=== PATIENT | female | born 1990 | race Caucasian/White ===

== ENCOUNTER 2017-10-30 07:31 | Inpatient (IN) | payer BC ==
[2017-10-30] MEDS ORDERED: LIDOCAINE HCL 50 ML VIAL PERI PRN (07:50)
[2017-10-30] MEDS ORDERED: DEXTROSE 5%-LACTATED RINGERS 1,000 ML IV PRN (07:50)
[2017-10-30] MEDS ORDERED: OXYTOCIN/DEXTROSE 5%-WATER 30 UNITS/500 ML BAG IV ONE ×2 (07:50→18:22)
[2017-10-30] MEDS ORDERED: RINGER'S SOLUTION,LACTATED 1,000 ML IV ONE (07:50)
[2017-10-30] MEDS ORDERED: METOCLOPRAMIDE HCL 5 MG/ML VIAL IV PRN (07:53)
[2017-10-30] MEDS ORDERED: diphenhydrAMINE HCL 50 MG/ML VIAL IV ONE (07:53)
[2017-10-30 08:11] LABS: Hematocrit 36.9 % (37.0-47.0); Hemoglobin 12.8 gm/dL (12.5-16.0); Mean Cell Volume 94.4 fl (78-100); Mean Corpuscular Hemoglobin 32.7 pg (27-31); Mean Corpuscular Hgb Conc 34.7 g/dl (32-36); Mean Platelet Volume 9.7 fl (6.0-9.5); Neutrophil # 13.7 K/mm3 (1.3-6.0); Neutrophil % 77.5 % (42-75.0); Platelet Count 319 K/mm3 (150-450); Red Blood Count 3.91 M/mm3 (4.2-5.4); White Blood Count 17.7 K/mm3 (4.0-10.5)
[2017-10-30 08:21] LABS: Random Urine Total Protein 9.2 mg/dL (0-12)
[2017-10-30 08:27] LABS: Anion Gap 9.9 mmol/L (6.8-13.8); BUN/Creatinine Ratio 10.3 (9.0-21.6); Bilirubin, Total 0.2 mg/dL (0.0-1.1); Ca. Corrected For Albumin 9.7 mg/dL (8.4-10.2); Calcium * 9.2 mg/dL (7.9-10.9); Carbon Dioxide 25.8 mmol/L (24-32.6); Potassium 3.7 mmol/L (3.4-4.6); Total Protein 7.2 gm/dL (6.2-8.2)
--- NOTE | 2017-10-30 16:32 | PN ---
Progess Note - Interim Narrative: 10/30/17 16:28 Patient managing labor pain well with no pain medications Vital signs stable. FHT: 130 baseline, reassuring Contractions q 2-3 min Cervix: 8/90/-2, AROM-clear Impression: Intrauterine at 38-2/7 weeks in labor. Mild preeclampsia Plan: Will start pitocin at 2 mu/min.
[2017-10-30] MEDS ORDERED: SENNOSIDES 8.6 MG TABLET PO PRN (18:22)
[2017-10-30] MEDS ORDERED: HYDROCORTISONE 30 APPL TUBE TP PRN (18:22)
[2017-10-30] MEDS ORDERED: GLYCERIN/WITCH HAZEL LEAF 40 APPL BOX TP PRN (18:22)
[2017-10-30] MEDS ORDERED: BISACODYL 10 MG SUPP.RECT RC PRN (18:22)
[2017-10-30] MEDS ORDERED: oxyCODONE HCL/ACETAMINOPHEN 1 TAB TABLET PO PRN (18:22)
[2017-10-30] MEDS ORDERED: BENZOCAINE/MENTHOL 81 SPRAY CAN TP PRN (18:22)
--- NOTE | 2017-10-30 18:28 | OR ---
Operative Report - Dictated Report Narrative: Spontaneous vaginal delivery of viable female at 1728 on 10/30/2017 with Apgars 9 and 9, weighing 2653 g in ANTONIO position with right hand at face. Cord clamping delayed approximately 1 minute Placenta delivered complete, intact, with three vessel cord Estimated blood loss: 100 mL Lacerations: First-degree right labial laceration near clitoral youngblood and in mid portion of labia repaired with 4-0 Vicryl Rapide.
[2017-10-30] MEDS: oxyCODONE HCL/ACETAMINOPHEN 1 TAB TABLET PO PRN (18:33)
[2017-10-30] MEDS: IBUPROFEN 800 MG TABLET PO PRN (19:15)
[2017-10-30] MEDS: DOCUSATE SODIUM 100 MG CAPSULE PO SCH (21:50)
[2017-10-31] MEDS: IBUPROFEN 800 MG TABLET PO PRN ×3 (04:25→21:41)
--- NOTE | 2017-10-31 09:25 | PN ---
Subjective - Date and Time Seen Date: 10/31/17 Time: 09:24 Objective - Vitals Vitals: Last Vital Signs Temp 37.1 C 10/30/17 23:00 Pulse 98 10/31/17 04:30 Resp 18 10/31/17 04:30 BP 132/68 10/31/17 04:30 Pulse Ox 100 10/30/17 23:00 Patient denies headache, visual changes, or abdominal pain. Admits to mild tailbone pain. Lochia wnl Abdomen - soft, nontender Uterus - firm, at umbilicus - 1 No calf tenderness Impression: day #1 - s/p spontaneous vaginal delivery. Mild preeclampsia resolved Plan: Continue routine care
[2017-10-31] MEDS: DOCUSATE SODIUM 100 MG CAPSULE PO SCH ×2 (09:34→21:41)
[2017-10-31] MEDS: oxyCODONE HCL/ACETAMINOPHEN 1 TAB TABLET PO PRN ×3 (13:57→21:41)
[2017-11-01] MEDS: oxyCODONE HCL/ACETAMINOPHEN 1 TAB TABLET PO PRN (03:49)
[2017-11-01] MEDS: IBUPROFEN 800 MG TABLET PO PRN (03:49)
[2017-11-01 07:40] VITALS: BP 120/64
[2017-11-01] MEDS ORDERED: CALCIUM CARBONATE/VITAMIN D3 1 TAB TABLET PO SCH (09:00)
[2017-11-01] MEDS ORDERED: PRENATAL VITS96/IRON FUM/FOLIC 1 TAB TABLET PO SCH (09:00)
[2017-11-01] MEDS ORDERED: FERROUS SULFATE 325 MG TABLET PO SCH (09:00)
--- NOTE | 2017-11-01 12:24 | PN ---
Subjective - Date and Time Seen Date: 11/01/17 Time: 12:23 Objective - Vitals Vitals: Last Vital Signs Temp 36.9 C 11/01/17 07:31 Pulse 72 11/01/17 07:31 Resp 18 11/01/17 07:31 BP 120/64 11/01/17 07:31 Pulse Ox 98 11/01/17 07:31 Patient denies complaints. Lochia wnl Abdomen - soft, nontender Uterus - firm, at umbilicus - 2 No calf tenderness Impression: day #2 - s/p spontaneous vaginal delivery. Mild preeclampsia-resolved. Plan: Routine discharge instructions. Preeclampsia precautions.
== END 2017-11-01 12:00 | disposition home or self-care (01) | DRG 775 ==
LOC: OB 07:31
PROVIDERS: ADMIT Obstetrics & Gynecology; ATTEND Obstetrics & Gynecology
PROC: 10E0XZZ Delivery of Products of Conception, External Approach (ICD-10-PCS; principal; 2017-10-30)
PROC: 4A1HXCZ Monitoring of Products of Conception, Cardiac Rate, External Approach (ICD-10-PCS; 2017-10-30)
PROC: 0HQ9XZZ Repair Perineum Skin, External Approach (ICD-10-PCS; 2017-10-30)
PROC: 10907ZC Drainage of Amniotic Fluid, Therapeutic from Products of Conception, Via Natural or Artificial Opening (ICD-10-PCS; 2017-10-30)
DX: O14.04 Mild to moderate pre-eclampsia, complicating childbirth; O70.0 First degree perineal laceration during delivery; Z37.0 Single live birth; O99.02 Anemia complicating childbirth; Z3A.38 38 weeks gestation of pregnancy; O13.4 Gestational [pregnancy-induced] hypertension without significant proteinuria, complicating childbirth; D64.9 Anemia, unspecified

== ENCOUNTER 2020-08-19 01:34 | Inpatient (IN) ==
--- NOTE | 2020-08-19 09:08 | HP ---
Chief Complaint - Chief Complaint Date of Service: 08/19/20 Time of Service: 08:15 Chief Complaint: painful contractions History of Present Illness: 30 yo at 38wks presents to L&D in labor. Contractions began last pm and continued throughout the night becoming more and more intense. This complicated by anemia, h/o migraines, and h/o preeclampsia. Rh positive Rubella immune GBS negative. Medical History (Last Reviewed 08/19/20 @ 16:34 by Monster Lucero DO) Hx of migraines (Chronic) History of pre-eclampsia (Chronic) Body piercing Onset Date: Unknown Migraine Onset Date: Unknown without aura, sensitive to smells and loud noises. Tattoos Onset Date: Unknown Wears glasses Onset Date: Unknown Anemia Onset Date: ~2016 w/ History of pre-eclampsia Onset Date: ~10/2017 mild Surgical History: Surgical History (Last Reviewed 08/19/20 @ 16:34 by Monster Lucero DO) H/O skin graft Onset Date: ~2009 in mouth during oral surgery History of tonsillectomy and adenoidectomy Onset Date: ~2002 [place] teeth extracted Onset Date: ~2011 Family History: Family History (Last Reviewed 08/19/20 @ 16:35 by Monster Lucero DO) Mother Depression Hypertension Father Alive and well Aunt Cancer breast Social History: (Last Reviewed 08/19/20 @ 16:35 by Monster Lucero DO) Social History: adopted: No care home: No Marital status: household members: spouse, children number of children: 1 current occupational status: unemployed current occupation: homemaker current occupational exposures/hazards: No Highest education level completed: some college, no degree Service: No Tobacco: Smoking Status: Former smoker tobacco type: cigarettes Smoking cigarettes per day: 10.0 Smoking packs per day: 0.5 Alcohol: alcohol intake: former alcohol intake frequency: a few times a week details: none since +UPT Substance Use: substance use type: does not use Dietary Habits: caffeine: Yes caffeine comment: 1 daily Type: carbonated beverages, coffee, tea Exercise: Physical activity type: none frequency: 3-4 times per week Review Of Systems (GEN) - Review of Systems Generalized/Overall Review: Present: No Symptoms Reported EENTM: Present: No Symptoms Reported Respiratory: Present: No Symptoms Reported Cardiac: Present: No Symptoms Reported Abdominal: Present: Other - contractions Genitourinary: Present: No Symptoms Reported Musculoskeletal: Present: No Symptoms Reported Neurological: Present: No Symptoms Reported Skin: Present: No Symptoms Reported Endocrine: Present: No Symptoms Reported Allergies/Adverse Reactions: Allergies Allergy/AdvReac Type Severity Reaction Status Date / Time No Known Allergies Allergy Verified 08/19/20 09:44 Home Medications: HOME MEDICATIONS prenat.vits,alcides,[id number] 1 tab PO DAILY 02/02/20 [Last Taken Unknown] aspirin 81 mg tablet,delayed release 81 mg PO DAILY 03/02/20 [Last Taken Unknown] magnesium oxide 500 mg PO DAILY tab 03/02/20 [Last Taken Unknown] ferrous sulfate 325 mg (65 mg iron) tablet 325 mg PO DAILY 06/07/20 [Last Taken Unknown] Ascorbic Acid [Vitamin C] 500 mg PO DAILY 08/19/20 [Last Taken Unknown] Exam - Exam Vital Signs: Vital Signs - Last Taken Temp 36.4 C 08/19/20 02:15 Pulse 91 08/19/20 02:15 Resp 18 08/19/20 02:15 BP 110/69 08/19/20 02:15 Pulse Ox 97 08/19/20 02:15 Constitutional: Present: Alert, Oriented x3, Cooperative, Mild distress ENT Exam: Present: hearing grossly normal Breasts: Present: Exam deferred Respiratory: Present: lungs clear, no respiratory distress Cardiovascular/Chest: Present: normal peripheral pulses, regular rate, rhythm, no edema Abdomen: Present: soft, nontender, no rebound tenderness, other - gravid /Rectal: Present: Other - Cervix 4-5/50/-2 Extremity: Present: normal range of motion, no pedal edema, no calf tenderness Skin Exam: Present: normal color, warm/dry, no cyanosis Neurologic: Present: alert, normal mood/affect, oriented x 3 Appearance: Present: appropriate appearance, appropriate insight Eye contact: Present: cooperative, good eye contact, normal speech Thoughts: Present: normal thought pattern, normal mood /affect Assessment/Plan - Assessment/Plan (1) Labor established Assessment: Admit for routine management of labor. Epidural and pitocin PRN. Problem: Acute (2) Hx of migraines Problem: Chronic (3) History of pre-eclampsia Problem: Chronic
--- NOTE | 2020-08-19 09:10 | PN ---
Progess Note - Interim Date: 08/19/20 Time: 08:40 Narrative: 08/19/20 09:09 Patient rating contractions 5 out of 10 Vital signs stable. FHT: 140 baseline, reassuring contractions q 2-3 min Cervix: 4-5/50/-2, AROM-clear Impression: Intrauterine at 38 1/7 weeks in labor Plan: Continue present plan 08/19/20 09:10
[2020-08-19] MEDS ORDERED: DEXTROSE 5%-LACTATED RINGERS 1,000 ML IV PRN (09:53)
[2020-08-19] MEDS ORDERED: ONDANSETRON 4 MG TAB.RAPDIS PO PRN (09:53)
[2020-08-19] MEDS ORDERED: RINGER'S SOLUTION,LACTATED 1,000 ML IV ONE (09:53)
[2020-08-19] MEDS ORDERED: OXYTOCIN/0.9 % SODIUM CHLORIDE 30 UNITS/500 ML BAG IV ONE ×2 (09:53→15:31)
[2020-08-19] MEDS ORDERED: BUTORPHANOL TARTRATE 2 MG/ML VIAL IV PRN (09:53)
[2020-08-19] MEDS ORDERED: SENNOSIDES 8.6 MG TABLET PO PRN (15:31)
[2020-08-19] MEDS ORDERED: GLYCERIN/WITCH HAZEL LEAF 40 APPL BOX TP PRN (15:31)
[2020-08-19] MEDS ORDERED: BENZOCAINE/MENTHOL 81 SPRAY CAN TP PRN (15:31)
[2020-08-19] MEDS ORDERED: IBUPROFEN 800 MG TABLET PO PRN ×2 (15:31)
[2020-08-19] MEDS ORDERED: oxyCODONE HCL/ACETAMINOPHEN 1 TAB TABLET PO PRN (15:31)
[2020-08-19] MEDS ORDERED: HYDROCORTISONE 30 APPL TUBE TP PRN (15:31)
[2020-08-19] MEDS ORDERED: BISACODYL 10 MG SUPP.RECT RC PRN (15:31)
--- NOTE | 2020-08-19 15:34 | OR ---
Operative Report - Dictated Report Narrative: Spontaneous vaginal delivery of vigorously crying viable male at 1506 on 08/19/2020 with Apgars 9 and 9, weighing 2774 g and ANTONIO position. Cord clamping delayed approximately 1 minute Placenta delivered complete, intact, with three vessel cord Estimated blood loss: Less than 50 ml Anesthesia: None Lacerations: None History for MU History for Definition: * The number of deliveries resulting in a live the patient experienced prior to current hospitalization * The previous delivery of live twins or any live multiple gestation is considered one live event. *If primagravida or nulliparous is documented select zero for the number of previous live births. Live Events: Live Events: 1
[2020-08-19] MEDS: DOCUSATE SODIUM 100 MG CAPSULE PO SCH (20:56)
[2020-08-20] MEDS: DOCUSATE SODIUM 100 MG CAPSULE PO SCH ×2 (07:26→11:40)
[2020-08-20] MEDS ORDERED: ASCORBIC ACID 500 MG TABLET PO SCH (09:00)
[2020-08-20] MEDS ORDERED: MAGNESIUM OXIDE 400 MG TABLET PO SCH (09:00)
[2020-08-20] MEDS ORDERED: PRENATAL VITS96/IRON FUM/FOLIC 1 TAB TABLET PO SCH (09:00)
[2020-08-20] MEDS ORDERED: FERROUS SULFATE 325 MG TABLET PO SCH (09:00)
--- NOTE | 2020-08-20 09:31 | PN ---
Subjective - Date and Time Seen Date: 08/20/20 Time: 08:00 Objective - Vitals Vitals: Last Vital Signs Temp 98.6 F 08/20/20 07:43 Pulse 105 H 08/20/20 07:43 Resp 16 08/20/20 07:43 BP 118/69 08/20/20 07:43 Pulse Ox 97 08/20/20 07:43
--- NOTE | 2020-08-20 13:34 | PN ---
Subjective - Date and Time Seen Date: 08/20/20 Time: 12:15 Objective - Vitals Vitals: Last Vital Signs Temp 37 C 08/20/20 07:43 Pulse 105 H 08/20/20 07:43 Resp 16 08/20/20 07:43 BP 118/69 08/20/20 07:43 Pulse Ox 97 08/20/20 07:43 Patient denies complaints. Breast-feeding well. Lochia wnl abdomen - soft, nontender Uterus -firm, at umbilicus - 1 No calf tenderness Impression: day #1 - s/p spontaneous vaginal delivery. Desires early discharge. Plan: Continue routine care. Routine discharge instructions given. Patient will be discharged today if her baby has a bowel movement, otherwise we will keep until tomorrow a.m. Assessment/Plan - Problems/Diagnosis (1) Labor established Problem: Acute (2) Hx of migraines Problem: Chronic (3) History of pre-eclampsia Problem: Chronic
--- NOTE | 2020-08-20 13:36 | DS ---
OB Discharge Summary (1) Labor established Status: Resolved (2) Hx of migraines Status: Chronic (3) History of pre-eclampsia Status: Chronic Delivery Date: 08/19/20 Delivery Time: 15:06 :: 2 Para:: 2 Gestational weeks:: 39 Gestational days:: 1 Intrapartum Procedures: Spontaneous Vaginal Delivery, Delivered Procedures: None /OP Complications: No Complications Discharge Diagnosis: Term -Delivered - Discharge Information Date of Discharge: 08/20/20 Hospital Course: 30-year-old 2 para 1 admitted at 38 1/7 weeks for labor. Delivery and course were uncomplicated. Discharge Location: Home Disposition: Home self-care Condition: Good Activity on Discharge:: Activity as tolerated, Pelvic Rest Discharge Diet: General/regular food Additional Patient Instructions (free text): Agueda your follow up appointment is scheduled for SundaySeptember 14 @ 2:[address] Lucero. No follow up will be Sunday at 2:[address] Patel. Nurse Pancho every 2 to 3 hours and on demand. Rest when he rest. Lay him on his back to sleep, in his own crib, no extra pillows, blankets or stuffed animals. No co sleeping. weight- 6 lb 1.8 lb Discharge weight - Congratulations on your new addition, please don't hesitate to call with any questions or concerns. Prescriptions (Any new or edited meds): Ibuprofen [Motrin] 200 - 800 mg PO Q6H PRN #100 tab PRN Reason: Pain Complete Home Medications List: Complete Home Medication List: prenat.vits,alcides,[id number] 1 tab PO DAILY 02/02/20 magnesium oxide 500 mg PO DAILY tab 03/02/20 ferrous sulfate 325 mg (65 mg iron) tablet 325 mg PO DAILY 06/07/20 Ascorbic Acid [Vitamin C] 500 mg PO DAILY 08/19/20 Ibuprofen [Motrin] 200 - 800 mg PO Q6H PRN #100 tab 08/19/20 - Plan Discharge to:: Home Follow up in office in:: 3-4 weeks - Information Weight (Grams): 2,774 Sex: Male Score 1 min: 9 Score 5 min: 9 Circumcision: No Infant Complications: None
[2020-08-20 15:31] VITALS: BP 121/60
== END 2020-08-20 17:50 | disposition home or self-care (01) | DRG 807 ==
LOC: OBCLINIC 01:34 → OB 08:28
PROVIDERS: ADMIT Obstetrics & Gynecology; ATTEND Obstetrics & Gynecology